=== PATIENT | male | born 1940 | race Caucasian/White ===

== ENCOUNTER → 2017-07-11 | Day surgery (SDC) | payer OTHER ==
[~2017-07-11] VITALS: Ht 170.2 cm; Wt 88.0 kg
[~2017-07-11] MED LIST: ASPIRIN EC81 MG PO; FISH OIL 1,0001 EACH PO; GLUCOPHAGE500 MG PO; GLUCOTROL5 MG PO; K-TAB 10MEQ10 MEQ PO; LASIX20 MG PO; LIDOCAINE1 EACH TOP; LIPITOR40 MG PO; LOPRESSOR25 MG PO; NEURONTIN400 MG PO; PROTONIX40 MG PO; PROVENTIL OR V6.7 GM INH; SINEMET 25-1001 EACH PO; THERA-VITE W/ B1 TAB PO; TYLENOL325 MG PO; ZYLOPRIM300 MG PO; [UNRECOGNIZED DRUG - OTHER] PO
== END ==
LOC: GPOC 07-07 13:00 → GEND 07:41 → GPOC 08:00
PROC: 0DJD8ZZ Inspection of Lower Intestinal Tract, Via Natural or Artificial Opening Endoscopic (ICD-10-PCS; principal; 2017-07-11)
DX: Z12.11 Encounter for screening for malignant neoplasm of colon (principal); E11.40 Type 2 diabetes mellitus with diabetic neuropathy, unspecified; K21.9 Gastro-esophageal reflux disease without esophagitis; E78.00 Pure hypercholesterolemia, unspecified; I10 Essential (primary) hypertension; J45.909 Unspecified asthma, uncomplicated; M19.90 Unspecified osteoarthritis, unspecified site; G20 Parkinson's disease; Z98.41 Cataract extraction status, right eye; Z98.42 Cataract extraction status, left eye; Z98.890 Other specified postprocedural states; Z86.73 Personal history of transient ischemic attack (TIA), and cerebral infarction without residual deficits; Z88.6 Allergy status to analgesic agent; Z79.899 Other long term (current) drug therapy; Z79.82 Long term (current) use of aspirin
CPT/HCPCS: J2001; J7030

== ENCOUNTER → 2017-07-12 | Day surgery (SDC) | payer OTHER ==
[~2017-07-12] VITALS: Ht 170.2 cm; Wt 86.5 kg
== END | disposition disaster alternative care site (69) ==
LOC: GEND 08:39 → GOPP 09:00
PROC: 0DJD8ZZ Inspection of Lower Intestinal Tract, Via Natural or Artificial Opening Endoscopic (ICD-10-PCS; principal; 2017-07-12)
DX: Z12.11 Encounter for screening for malignant neoplasm of colon (principal); K57.30 Diverticulosis of large intestine without perforation or abscess without bleeding; K64.4 Residual hemorrhoidal skin tags; I10 Essential (primary) hypertension; E78.00 Pure hypercholesterolemia, unspecified; E11.40 Type 2 diabetes mellitus with diabetic neuropathy, unspecified; M19.90 Unspecified osteoarthritis, unspecified site; Z98.41 Cataract extraction status, right eye; Z98.42 Cataract extraction status, left eye; Z96.1 Presence of intraocular lens; Z98.890 Other specified postprocedural states
CPT/HCPCS: J2001; J7030